=== PATIENT | female | born 1985 | race Caucasian/White ===

== ENCOUNTER 2017-07-19 09:43 | Day surgery (SDC) | payer OTHER ==
[~2017-07-19 09:43] MED LIST: TOBRA 0.3%/DEXAMETH 0.1% OPHTHALMIC SUSP 2.5 ML BTL OD SCH
[2017-07-19 10:03] VITALS: BMI 23.9
[2017-07-19] MEDS ORDERED: MIDAZOLAM HCL 2 MG/2 ML SINGLE DOSE VIAL ONE ×3 (10:41→11:02)
[2017-07-19] MEDS ORDERED: PHENYLEPHRINE 2.5% OPHTH SOLN 15 ML BOTTLE ONE (10:43)
[2017-07-19] MEDS ORDERED: POVIDONE-IODINE 5% OPHTHALMIC PREP 30 ML SOLUTION OD ONE (10:45)
[2017-07-19] MEDS ORDERED: LIDOCAINE HCL 2% JELLY 10 ML CARTRIDGE ONE (10:50)
[2017-07-19] MEDS ORDERED: TETRACAINE 0.5% OPHTH SOLN 2 ML BOTTLE OD ONE (11:03)
[2017-07-19] MEDS ORDERED: PHENYLEPHRINE HCL 10% OPHTHALMIC SOLN 5 ML BOTTLE OD ONE (11:03)
[2017-07-19] MEDS ORDERED: LIDOCAINE HCL 2% JELLY (5 ML/TUBE) TP ONE (11:03)
[2017-07-19] MEDS ORDERED: CHONDROITIN SU A/HYALUR SOD 1 KIT IO ONE (11:13)
[2017-07-19] MEDS ORDERED: BACITRACIN 3.5 GM OPTHALMIC OINT TUBE OD ONE (12:23)
[2017-07-19] MEDS ORDERED: NEO/POLYMYX B SULF/DEXAMETH OPHTHALMIC 5ML BOTTLE OD ONE (12:23)
[2017-07-19] MEDS ORDERED: NEO/POLYMYX B SULF/DEXAMETH OPHTHALMIC 5ML BOTTLE ONE (12:36)
[2017-07-19] MEDS ORDERED: BACITRACIN/POLYMYXIN OPH OINT 3.5 GM TUBE ONE (12:36)
[2017-07-19] MEDS ORDERED: TETRACAINE 0.5% OPHTH SOLN 2 ML BOTTLE ONE (12:36)
[2017-07-19] MEDS ORDERED: ACETYLCHOLINE 1:100 INTRA-OCUL 20 MG/2 ML KIT ONE (12:36)
[2017-07-19] MEDS ORDERED: EPI-SHUGARCAINE (EPINEPHRINE 0.025% & LIDOCAINE-PF 0.75%) 4ML ONE (12:36)
[2017-07-19] MEDS ORDERED: BETAXOLOL HCL 0.25% OPHTHALMIC 10 ML DROPSBTL ONE (12:36)
[2017-07-19] MEDS ORDERED: ACETAMINOPHEN 325 MG TABLET (FP) PO PRN (12:37)
[2017-07-19 13:14] VITALS: BP 110/65; PULSE 76; TEMP 98
--- NOTE | 2017-07-19 14:39 | OP ---
DATE OF OPERATION: 07/19/2017 PREOPERATIVE DIAGNOSIS: Pterygium, progressive, right eye. POSTOPERATIVE DIAGNOSIS: Pterygium, progressive, right eye. PROCEDURE: Pterygium excision with conjunctival free autograft, right eye. SURGEON: Pete Quiroga MD DATA DELIVERABLES MANAGER: Lorin Valentin MD ANESTHESIA: Topical with sedation. ESTIMATED BLOOD LOSS: Less than 1 mL. SPECIMENS: Pterygium, right eye. COMPLICATIONS: None. DESCRIPTION OF PROCEDURE: The patient was identified in the holding area. After all risks, benefits, and alternatives were explained to the patient, informed consent was obtained. The right eye was marked with a marking pen. The patient then entered the operating room on an eye stretcher. After a formal timeout was performed, topical tetracaine eye drops were instilled onto the right eye. The right eye was then prepped and draped in usual sterile fashion. An eyelid speculum was placed beneath the eyelids of the right eye. Upon inspection, a nasal pterygium was found. Then, a 6-0 double-armed silk suture was placed at the superior and inferior limbus to provide traction to the eye. The eye was rotated temporally to expose the nasal pterygium. Then, using 0.12 forceps and Wai scissors as well as a crescent blade, the nasal pterygium was avulsed from the cornea as well as from the conjunctiva. Hemostasis was achieved using cautery. The conjunctiva was undermined using Wai forceps, and all excess [place] was excised from the eye. Upon inspection, the graft site was measured to be 6 mm x 6 mm. Attention was then turned to the superior conjunctiva where a 6 mm x 6 mm conjunctival free autograft was excised and rotated down to the graft site, limbus to limbus fashion. The conjunctival autograft was then secured to the host conjunctiva using interrupted 7-0 Vicryl sutures. Tisseel brand glue was then used to help with adherence of the conjunctival autograft to the scleral bed. Upon inspection, the autograft was lying nicely and secured to the graft site. There was no bleeding noted at this time. The cornea was clear, and there was a red reflex present. The 6-0 silk traction sutures were removed from the eye, and topical antibiotic eye drops and ointment were then administered to the right eye. The right eye was patch and shielded. The patient tolerated the procedure well, left the operating room in stable condition, to follow up in the eye clinic tomorrow morning at 9:00. PETE QUIROGA M.D. [id number]
--- NOTE | 2017-07-21 15:25 | PATH ---
Surgical Pathology Report Patient Name: VIJAY OSEI [facility]. Rec. #: [id number] /Age/Gender: 1985 (Age: 31) / F Account: [id number] Location: [facility] AMBUL[facility]ORY Taken: 07/19/2017 Received: 07/19/2017 Reported: 07/21/2017 Physicians: Pete Guevara Specimen(s) Received PTERYGIUM RIGHT EYE Clinical History Pterygium Final Diagnosis EYE, RIGHT, PTERYGIUM, EXCISION: PTERYGIUM. Electronically Signed Dang Eason M.D. Gross Description Received in formalin, labeled "pterygium right eye" is a allison, irregular portion of soft tissue measuring 0.4 cm. in greatest dimension. The specimen is submitted in toto in one cassette. 07/20/201707/20/2017
== END 2017-07-19 13:25 | disposition home or self-care (01) ==
LOC: FASU 09:43
PROVIDERS: ATTEND Ophthalmology
PROC: 08U Eye, Supplement (ICD-10-PCS; 2017-07-19)
PROC: 08B8XZZ Excision of Right Cornea, External Approach (ICD-10-PCS; principal; 2017-07-19 11:03)
DX: H11.001 Unspecified pterygium of right eye (principal)
CPT/HCPCS: 84703; 88304-TC